=== PATIENT | male | born 1975 | race Two or more races ===

== ENCOUNTER 2019-09-28 00:14 | Emergency (ER) | payer SELFPAY ==
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
[2019-09-28] MEDS ORDERED: ACETAMINOPHEN 325 MG TABLET (FP) PO ONE (00:35)
[2019-09-28 00:38] VITALS: BP 141/97; PULSE 92; TEMP 99.2; BMI 26.4
[2019-09-28] MEDS ORDERED: ACETAMINOPHEN 325 MG TABLET (FP) ONE (00:50)
--- NOTE | 2019-09-28 09:19 | EKG ---
Test Reason : Blood Pressure : / mmHG Vent. Rate : 086 BPM Atrial Rate : 086 BPM P-R Int : 166 ms QRS Dur : 082 ms QT Int : 356 ms P-R-T Axes : 059 015 010 degrees QTc Int : 426 ms NORMAL SINUS RHYTHM NORMAL ECG NO PREVIOUS ECGS AVAILABLE Confirmed by MD Jamel, Juan Miguel ([id number]) on 09/28/2019 9:19:35 AM Referred By: Confirmed By:Juan Miguel Mccullough MD
== END 2019-09-28 02:49 | disposition home or self-care (01) ==
LOC: JER 00:14
DX: T14.8XXA Other injury of unspecified body region, initial encounter (principal); V49.49XA Driver injured in collision with other motor vehicles in traffic accident, initial encounter; Y92.414 Local residential or business street as the place of occurrence of the external cause; Y93.89 Activity, other specified; Y99.8 Other external cause status
CPT/HCPCS: 36415; 71045-TC-FY; 73030-TC-LT-FY; 84484; 93005; 93010; 99282-25